=== PATIENT | male | born 1980 | race Caucasian/White ===

== ENCOUNTER → 2016-04-29 | Outpatient (CLI) | payer BC ==
[~2016-04-29] MED LIST: ALBU1AER9 INH; CLR10 PO; FLUT1INH INH; PRT/40 PO; SNG10 PO
--- NOTE | 2016-04-30 06:29 | PAP/PSG TECHNICIAN REPORT ---
[facility] Straw Boss Polysomnogram Report Study name: None Report date: 04/30/2016 Study date: 04/29/2016 Referring Physician: DR. BRAUN Name: TANIYA GARDNER Interpreting Physician: Taniya Braun M.D. Date of : 1980 Straw Boss: Juan J Benito RPSGT. Sex: Male Age: 35 StudyType: PSG Weight: 226 lbs 17 inches Height: 35 years, Height 6' 0" Neck Circum: BMI: 30.65 Medications: BREO ELLIPTA 100-25 MCG, FLUTICASONE PROPIONATE 50 MCG/ACT, PANTOPRAZOLE SODIUM 40 MG, PROAIR HFA 108 (90) BASE Patient History PATIENT HAS HISTORY OF FATIGUE, SNORING AND WITNESSED APNEAS. HE HAD A SLEEP STUDY DONE IN 2012 BUT HAD AN AHI OF 1.5 AT THAT TIME. HE HAS GAINED SOME WEIGHT SINCE HIS LAST STUDY. HE IS HERE TODAY FOR AN EVALUATION OF AMY. ESS = 7 RM 7 Parameters Monitored NPSG: E1-M2, E2-M1, Fp1-M2, Fp2-M1, F3-M2, F4-M2, F4-M1, C3-M2, C4-M2, C4-M1, O1-M2, O2-M2, O2-M1, T3-M2, T4-M1, P3-M2, P4-M1, CHIN1, CHIN2, HR, EKG, Legs, PFLOW, SNOR, FLOW, CFLOW, Tidal Volume, THOR, ABDO, SpO2, PLTH, CPRESS, ETCO2 Wave, ETCO2, pH Sleep Architecture Sleep Stages Time at Lights Off 9:54:45 PM STAGES Time (min.) TST (%) Time at Lights On 5:29:15 AM Wake 32.0 -- Total Recording Time (TRT) 455.00 min. N1 23.0 5 Total Sleep Period (TSP) 431.5 min. N2 268.0 63 Total Sleep Time (TST) 422.5min. N3 37.5 9 Awake Time 32.0 min. REM 94.0 22 Wake after Sleep Onset 9.0 min. Sleep Efficiency (SE) 93 % Sleep Onset Latency (MARGUERITE) 23.0 min. Number of Stage 1 Shifts None Awakenings 13 Stage Changes 89 Number of REM periods 12 REM 94.0 22 REM Latency 84.0 min. NREM 328.5 78 Body Position Analysis Supine Right Left Side Prone Vertical Total Sleep Time (min.) 260.4 73.7 117.3 191.06 0.0 0.0 Total Sleep Time (%) 55% 17% 28% 45 0% N/A% Total Sleep Time REM (min.) 13.8 39.1 41.1 None 0.0 0.0 Total Sleep Time NREM (min.) 217.6 34.6 76.3 None 0.0 0.0 Intermittent Wake (min.) 29.0 2.0 1.0 None 0.0 0.0 Total Sleep Period (%) 55% None None None None None Arousals Myoclonus (PLM) * Events Count Index Events Count Index Spontaneous 70 10 Events Awake (PLMW) 38 71.3 Respiratory 22 3.3 Events Asleep w/ Arousal (PLMA) 6 0.9 PLM 6 1 Events Asleep w/o Arousal (PLMS) 97 13.8 Snoring 1 0 Total Asleep 103 14.6 Total 99 14 Total 141 19 Respiratory Analysis * CA OA MA CH H RERA Total Count 0 6 1 0 39 11 46 Index 0.0 0.9 0.1 0 5.5 2 8.1 Mean Duration 0.0 17.5 14.5 0.00 19.3 14.9 18.2 Longest Duration 0.0 24.1 14.5 0.00 14.5 18.5 50.6 Respiratory Event Summary Total Supine ~Supine Right Left Prone REM NREM Apneas Count 7 7 0 0 0 N/A 0 7 Index 1.0 2 0 0.0 0.0 N/A 0 1 Hypopneas (4% Desat) Count 39 37 2 1 1 N/A 3 36 Index 5.5 9.6 1 0.8 0.5 N/A 1.9 6.6 Apneas & All Hypopneas Count 46 44 2 1 1 N/A 3 43 Index 6.5 11 1 1 1 N/A 1.9 7.9 Respiratory Events (Factorer+All Hyp+RERA) Count 46 54 3 2 1 N/A 3 43 Index 8.1 14 1 1.6 0.5 N/A 2.6 9.7 Respiratory Related Arousal Count 22 54 1 1 0 N/A 1 22 Index 3.3 6 0 1 0 N/A 1 4 Snoring Analysis Supine Right Left Prone REM NREM Total Snore duration 0.1 min Snores count 3 0 1 N/A 0 4 4 Snore mean duration 1.0 Sec Snores index 1 0 1 N/A 0.0 0.7 0.6 TST with snoring (%) 0.0% Desaturation Event Summary: Minimum %SpO2 Event Count Mean/Min/Max Duration(sec.) Desaturation Index % Time In Bed > 90 44 26.7 / 10.3 / 60.0 5.9 99.2 86 - 90 1 17.0 / 17.0 / 17.0 18.0 0.7 81 - 85 0 N/A 0.0 0.0 76 - 80 0 N/A 0.0 0.0 71 - 75 0 N/A 0.0 0.0 66 - 70 0 N/A 0.0 0.0 61 - 65 0 N/A 0.0 0.0 56 - 60 0 N/A 0.0 0.0 51 - 55 0 N/A 0.0 0.0 < 50 0 N/A 0.0 0.0 Total REM NREM Awake <50% 0.0 min. 0.0 min. 0.0 min. 0.0 min. 51 - 60% 0.0 min. 0.0 min. 0.0 min. 0.0 min. 61 - 70% 0.0 min. 0.0 min. 0.0 min. 0.0 min. 71 - 80% 0.0 min. 0.0 min. 0.0 min. 0.0 min. 81 - 90% 3.5 min. 1.2 min. 1.8 min. 0.5 min. 91 - 100% 450.8 min. 92.8 min. 326.6 min. 31.4 min. Average 94 94 94 94 Minimum SpO2 84 84 88 85 Desaturation Event Index 5.9 1.9 7.3 7.5 # Desat. Events below 89% 5 3 2 0 Time(%) with Saturation below 89% 0.3 0.2 0.1 0.0 Time(min.) with Saturation below 89% 1.3 0.9 0.2 0.2 Time (mins) REM (mins) NREM (mins) % of TST SpO2 Below 90% 13 3 N10 0.5 SpO2 Below 88% 1 0 0 0 Heart Rate Analysis Min (bpm) Max (bpm) Average (bpm) Awake 68 111 95 NREM 63 127 82 REM 71 105 83 Overall 63 127 82 Supplemental O2 Values Minimum O2 level: None Value Start Time End Time Straw Boss Comments Mr. Gardner slept in the right, left and supine positions. No cardiac arrhythmia noted. Leg movements noted. No bruxism noted. Snoring was noted and scored as a 1 on a scale of 1 through 5. (0=no snoring, 5=snoring loud enough to be heard through a closed door or down the leach way) Mr. Gardner awoke to use the restroom 0 times during the night. Mr. Gardner stated I did not sleep as well as I do when I am in my own bed. The final report will be interpreted and signed by a sleep physician. The completed physician report will then be placed in the patient medical record. Therapy (cm H2O) 0 TIB (min.) 454.5 TST (min.) 422.5 Sleep Onset (min.) 23.0 REM Onset From Sleep (min.) 84.0 Sleep Efficiency % 93 Wakefulness (%) 7 Wakefulness (min.) 32.0 NREM 1 (%) 5 NREM 1 (min.) 23.0 NREM 2 (%) 63 NREM 2 (min.) 268.0 NREM 3 (%) 9 NREM 3 (min.) 37.5 REM (%) 22 REM (min.) 94.0 # Arousals 99 Arousal Index 14 # Snore 4 Snore Index 0.6 AHI 6.5 AHI Supine 11 AHI Non-Supine 1 NREM AHI 7.9 REM AHI 1.9 RDI 8.1 # Obstructive Apnea 6 # Central Apnea 0 # Mixed Apnea 1 # Hypopneas 39 RERAs 11 Total Respiratory Events 57 Time Below SpO2 89% (min.) 1.1 Mean NREM SpO2 (%) 94 Mean REM SpO2 (%) 94 Mean Sleep SpO2 (%) 94 Min NREM SpO2 (%) 88 Min REM SpO2 (%) 84 Position Supine (min.) 260.4 Position Non-supine (min.) 191.1 LM Index Sleep 14.6 LM Index NREM 14.6 LM Index REM 14.7 Mean Heart Rate (bpm) 82 Min Heart Rate (bpm) 63
--- NOTE | 2016-05-02 11:46 | POLYSOMNOGRAPH REPORT ---
CLINICAL DATA: A 35-year-old male with BMI of 30.65 referred by myself, Dr. Zamora and Emely Camacho with symptoms of progressive snoring, fatigue and witnessed apneic episodes. He had a sleep study done in 2012 which did not show significant sleep apnea but has gained weight since that time. SLEEP ARCHITECTURE: Total sleep period was 431.5 minutes. Total sleep time was 422.5 minutes divided between 328.5 minutes of non-REM sleep and 94 minutes of REM sleep. Sleep onset latency was 22 minutes. REM latency was 84 minutes. Sleep efficiency was 92%. Wake after sleep onset was 9 minutes. Sleep consisted of stage N1 5%, N2 63%, N3 9%, REM 22%. AROUSAL DATA: Ninety-nine arousals were recorded for an index of 14 per hour. PLM DATA: 103 limb movements during sleep were noted for an index of 14.6 per hour with arousal index of 0.9 per hour. RESPIRATORY DATA: Mild sleep apnea was documented. The AHI was 6.5. The RDI was 8.1. There were 6 obstructive and 1 mixed apneic episodes. The longest duration of apnea was 24.1 seconds. There were 39 hypopneic episodes. The mean duration of hypopnea was 19.3 seconds. There were 11 RERAs. The longest RERA was 18.5 seconds. OXIMETRY DATA: Nocturnal hypoxemia was seen. Oxygen abelardo was 84% during REM. The mean saturation was 94%. Time below 88% was 1 minute. EKG: Heart rates ranged from 63 to 127 beats per minute. No arrhythmias were noted. OPERATOR ASSISTANT I CEMENTING'S COMMENTS: The patient slept in the right, left, and supine positions. Snoring was mild, rated 1 on a scale of 1 through 5. IMPRESSION: Mild sleep apnea/hypopnea with an AHI of 6.5 and an RDI of 8.1. RECOMMENDATIONS: The patient may benefit from weight loss, use of an oral appliance or a repeat sleep study with CPAP. Clinical correlation is needed. ANTON
== END | disposition home or self-care (01) ==
LOC: C.NEUR 21:00
PROVIDERS: ATTEND Internal Medicine Pulmonary Disease
DX: R06.81 Apnea, not elsewhere classified (principal)

== ENCOUNTER → 2016-05-05 | Outpatient (CLI) | payer BC ==
[~2016-05-05] VITALS: Ht 182.9 cm; Wt 101.2 kg
[2016-05-05 15:11] VITALS: BP 128/85; PULSE 114; Ht 182.9 cm; Wt 101.2 kg
== END | disposition home or self-care (01) ==
LOC: C.NEUR 14:35
PROVIDERS: ATTEND Internal Medicine Pulmonary Disease
DX: G47.33 Obstructive sleep apnea (adult) (pediatric) (principal); R53.83 Other fatigue

== ENCOUNTER → 2016-08-03 | Day surgery (SDC) | payer BC ==
[2016-07-08 10:19] VITALS: Ht 182.9 cm; Wt 95.5 kg
[~2016-08-03] VITALS: Ht 182.9 cm; Wt 95.5 kg
[~2016-08-03] MED LIST changes: +ATROPINE SULFATE 0.1 MG/ML 5ML SYR IV PRN; +EpHEDrine SULFATE INJ 50 MG/ML AMP IV PRN; +FENTANYL CITRATE INJ 50 MCG/1 ML 2 ML VIAL ONE; +PANT40TA2 PO; +PROPOFOL IV EMULSION 10 MG/ML 20 ML VIAL IV ONE; -PRT/40 PO; -SNG10 PO
--- NOTE | 2016-08-03 09:54 | Endo History and Physical ---
History & Physical Date of Service: Aug 03, 2016. Chief Complaint: hx esinophilic esophogitis, food sticking Referring Physician: Dr Zamora History of Present Illness 35 yo CM who presents for EGD secondary to history of eosinophilic esophagitis. Past Medical History Asthma, Reflux, Kidney Disease Past Surgical History Hx Cardiac Surgery: No Hx Internal Defibrillator: No Hx Pacemaker: No Hx Abdominal Surgery: No Hx Post-Op Nausea and Vomiting: No Hx Cancer Surgery: No Hx Thoracic Surgery: No Hx Orthopedic: Yes (R/L KNEE ACL) Hx Urinary Tract Surgery: No Family History None Social History Smoking Status: Never Smoker Hx Substance Use: No Hx Alcohol Use: Yes (ONE DRINK A WEEK ) Allergies Coded Allergies: No Known Allergies (Unverified , 08/03/16) Current Medications Reported Home Medications Medications Dose Route/Sig Max Daily Dose Days Date Category Breo Ellipta (Fluticasone Furoate-Vilanterol) 1 Inh Inh 1 Dose INH QAM 07/08/16 Reported Proair Hfa (Albuterol Sulfate) 108 Mcg/ Aer 2 Puffs INH Q4H PRN 01/27/14 Reported Pantoprazole Sodium (Pantoprazole) 40 Mg Tab 40 Mg PO QAM 01/27/14 Reported Vital Signs Weight (Kilograms): 95.45 Height (Feet): 6 Height (Inches): 0 Date Time Temp Pulse Resp B/P (MAP) Pulse Ox O2 Delivery O2 Flow Rate FiO2 08/03/16 09:37 37 94 20 127/76 (93) 94 Room Air Physical Exam General Appearance: WD/WN, no apparent distress Respiratory/Chest: Auscultation: breath sounds normal Cardiovascular: Heart Auscultation: RRR Abdomen: Bowel Sounds: normal Inspection & Palpation: soft, non-distended, no tenderness, guarding & rebound Assessment and Plan Assessment: 35 yo CM who presents for EGD secondary to history of eosinophilic esophagitis. Plan: Proceed with EGD.
--- NOTE | 2016-08-03 10:14 | Discharge Instructions ---
Endoscopy Patient Instructions Date / Procedure(s) Performed Aug 03, 2016. EGD Allergy Information Coded Allergies: No Known Allergies (Unverified , 08/03/16) Discharge Date / Findings Aug 03, 2016. Esophageal stricture s/p dilation to 18mm Hiatal hernia Medication Instructions OK to resume all medications today as prescribed Medications Dose Route/Sig Max Daily Dose Days Date Category Breo Ellipta (Fluticasone Furoate-Vilanterol) 1 Inh Inh 1 Dose INH QAM 07/08/16 Reported Proair Hfa (Albuterol Sulfate) 108 Mcg/ Aer 2 Puffs INH Q4H PRN 01/27/14 Reported Pantoprazole Sodium (Pantoprazole) 40 Mg Tab 40 Mg PO QAM 01/27/14 Reported Provider Instructions Activity Restrictions - No exercising or heavy lifting for 24 hours. - Do not drink alcohol the day of the procedure. - Do not drive a car or operate machinery until the day after the procedure. - Do not make any important decisions or sign important papers in 24 hours after the procedure. Following Day: - Return to full activity which may include returning to work/school. Diet Start your diet with liquids and light foods (jello, soup, juice, toast). Then eat your usual diet if not nauseated. Treatment For Common After Affects For mild abdominal pain, bloating, or excessive gas: - Rest - Eat lightly - Lie on right side Follow-Up Information Follow-up with Dr Zamora as scheduled Anesthesia Information What You Should Know You have had a procedure that required some medicine to reduce anxiety and discomfort. This treatment is called moderate sedation. After receiving the treatment, you may be sleepy, but you will be able to breathe on your own. The effects of the treatment may last for several hours. Follow these instructions along with Activity/Diet recommendations noted above: * Do NOT do anything where dizziness or clumsiness would be dangerous. * Rest quietly at home today, then you can be up and about tomorrow. * Have a responsible person stay with you the rest of today. * You may have had an I.V. today. If so, you may take the dressing off later today. Recommendations Call your doctor if: * Trouble breathing * Continuous vomiting for more than 24 hours * Temperature above 101 degrees * Severe abdominal pain or bloating * Pain not relieved by pain medicine ordered * There is increased drainage or redness from any incision * A large amount of rectal bleeding greater than 2-3 tablespoons. (If you had a polyp/s removed or have hemorrhoids, a small amount of blood - from the rectum is to be expected.) * You have any unanswered questions or concerns. IN THE EVENT OF A SERIOUS EMERGENCY, GO TO THE NEAREST EMERGENCY ROOM Your discharge instructions were prepared by provider Thor Arevalo. Patient Instructions Signature Page Lucio Jules Patient (or Guardian) Signature/Date: I have read and understand the instructions given to me by my caregivers. Caregiver/RN/Doctor Signature/Date: The above-named patient and/or guardian has received patient instructions on this date. + Original Patient Signature Page (only) stays with chart. Please make copy for patient.
--- NOTE | 2016-08-03 10:41 | Anesthesiology Progress Note ---
Anesthesia Post Op Note Date & Time Aug 03, 2016 at 10:41 Vital Signs Pain Intensity: 2 Vital Signs Past 12 Hours Date Time Temp Pulse Resp B/P (MAP) Pulse Ox O2 Delivery O2 Flow Rate FiO2 08/03/16 10:20 94 20 118/78 (91) 94 Room Air 08/03/16 09:37 37 94 20 127/76 (93) 94 Room Air Notes Mental Status: alert / awake / arousable, participated in evaluation Pt Amnestic to Procedure: Yes Nausea / Vomiting: adequately controlled Pain: adequately controlled Airway Patency, RR, SpO2: stable & adequate BP & HR: stable & adequate Hydration State: stable & adequate Anesthetic Complications: no major complications apparent
--- NOTE | 2016-08-03 10:46 | GI REPORT ---
Procedure Date: 08/03/2016 9:45 AM THIS REPORT HAS BEEN AMENDED Addendum Number: 1 Addendum Date: 08/03/2016 10:55:19 AM Biopsies were not performed in the normal appearing duodenum. Biopsies were not performed in the normal appearing stomach for H. pylori. Procedure: Upper GI endoscopy Indications: Dysphagia, Follow-up of eosinophilic esophagitis Medicines: Monitored Anesthesia Care Complications: No immediate complications. Estimated Blood Loss: Estimated blood loss: none. Procedure: Pre-Anesthesia Assessment: - Prior to the procedure, a History and Physical was performed, and patient medications and allergies were reviewed. The patient's tolerance of previous anesthesia was also reviewed. The risks and benefits of the procedure and the sedation options and risks were discussed with the patient. All questions were answered, and informed consent was obtained. Prior Anticoagulants: The patient has taken no previous anticoagulant or antiplatelet agents. ASA Grade Assessment: II - A patient with mild systemic disease. After reviewing the risks and benefits, the patient was deemed in satisfactory condition to undergo the procedure. After obtaining informed consent, the endoscope was passed under direct vision. Throughout the procedure, the patient's blood pressure, pulse, and oxygen saturations were monitored continuously. The scope was introduced through the mouth, and advanced to the second part of duodenum. The upper GI endoscopy was accomplished without difficulty. The patient tolerated the procedure well. Findings: One mild benign-appearing, intrinsic stenosis was found. This measured 1.4 cm (inner diameter) x less than one cm (in length) and was traversed. A TTS dilator was passed through the scope. Dilation with a 15-16.5-18 mm balloon (to a maximum balloon size of 18 mm) dilator was performed. The dilation site was examined and showed moderate improvement in luminal narrowing. Several biopsies were obtained with cold forceps for histology in a targeted manner in the middle third of the esophagus. A small hiatus hernia was present. Biopsies were taken with a cold forceps in the gastric antrum for Helicobacter pylori testing. The examined duodenum was normal. Biopsies for histology were taken with a cold forceps for evaluation of celiac disease. Impression: - Benign-appearing esophageal stenosis. Dilated. - Small hiatus hernia. - Normal examined duodenum. Biopsied. - Several biopsies were obtained in the middle third of the esophagus. - Biopsies were taken with a cold forceps for Helicobacter pylori testing. Recommendation: - Resume previous diet. - Continue present medications. - Await pathology results. - Return to GI office as previously scheduled. Thor Arevalo, DO 08/03/2016 10:46:16 AM This report has been signed electronically. Note Initiated On: 08/03/2016 9:45 AM I attest to the content of the Intraoperative Record and orders documented therein, exceptions below Thor Petersen Case, DO 08/03/2016 10:56:08 AM This report has been signed electronically.
[2016-08-03 10:55] VITALS: BP 130/84; PULSE 97; O2SAT 97
== END | disposition home or self-care (01) ==
LOC: C.GI 09:11
PROVIDERS: ATTEND Internal Medicine
DX: R13.10 Dysphagia, unspecified (principal); K20.9 Esophagitis, unspecified; K22.2 Esophageal obstruction; K44.9 Diaphragmatic hernia without obstruction or gangrene; J45.909 Unspecified asthma, uncomplicated; G47.33 Obstructive sleep apnea (adult) (pediatric); Z98.890 Other specified postprocedural states; Z68.28 Body mass index [BMI] 28.0-28.9, adult

== ENCOUNTER → 2017-03-12 | Outpatient (CLI) | payer BC ==
[~2017-03-12] MED LIST changes: -ATROPINE SULFATE 0.1 MG/ML 5ML SYR IV PRN; -CLR10 PO; -EpHEDrine SULFATE INJ 50 MG/ML AMP IV PRN; -FENTANYL CITRATE INJ 50 MCG/1 ML 2 ML VIAL ONE; -PROPOFOL IV EMULSION 10 MG/ML 20 ML VIAL IV ONE
--- NOTE | 2017-03-12 12:48 | DIAGNOSTIC IMAGING REPORT ---
CHEST 2 VIEWS ROUTINE CLINICAL HISTORY: R05 [id number] cough. Dyspnea. COMPARISON STUDY: 03/01/2014 FINDINGS: The bones soft tissues and hemidiaphragms are normal. The cardiomediastinal silhouette is normal. The lungs are clear. The pulmonary vasculature is normal. IMPRESSION: Negative chest. The above report was generated using voice recognition software. It may contain grammatical, syntax or spelling errors. Electronically signed by: Julio He M.D. 03/12/2017 12:46 PM Dictated Date/Time: 03/12/2017 12:46 PM
== END | disposition home or self-care (01) ==
LOC: C.RAD1850 12:32
PROVIDERS: ATTEND Physician Assistant Medical
DX: R05 Cough (principal)